=== PATIENT | female | born 1990 | race Hispanic/Latino ===

== ENCOUNTER 2021-09-13 19:12 | Emergency (ER) | payer OTHER ==
[~2021-09-13] VITALS: Ht 170.2 cm; Wt 121.6 kg
[2021-09-13] MEDS ORDERED: TETANUS/DIPHTHERIA TOXOID [ADULT] 0.5 ML VIAL IM ONE ×2 (19:13→20:00)
[2021-09-13 19:25] VITALS: BP 124/78
[2021-09-13] MEDS ORDERED: AMOX/CLAV 875/125MG TAB PO ONE ×2 (20:00→20:06)
[2021-09-13] MEDS ORDERED: BACI30OI6 TP (20:04)
[2021-09-13] MEDS ORDERED: NAPR-1023 PO (20:04)
[2021-09-13] MEDS ORDERED: AMOX1TAB16 PO (20:04)
== END 2021-09-13 20:26 | disposition home or self-care (01) ==
LOC: EDH 19:12
DX: S91.331A Puncture wound without foreign body, right foot, initial encounter (principal); Z88.6 Allergy status to analgesic agent; Z79.899 Other long term (current) drug therapy; W22.8XXA Striking against or struck by other objects, initial encounter; Y93.89 Activity, other specified; Y92.89 Other specified places as the place of occurrence of the external cause; Y99.8 Other external cause status
CPT/HCPCS: 73630; 82948; 90471; 90714